=== PATIENT | male | born 1970 | race Caucasian/White ===

== ENCOUNTER 2022-01-13 00:24 | Day surgery (SDC) | payer OTHER, SELFPAY ==
[2022-01-04 14:34] VITALS: BMI 33.0
--- NOTE | 2022-01-12 12:34 | WPDANESEPPF ---
Anes - Initial Pre Proc Eval Procedure: Operation Date: 01/13/22 08:00 Proposed Procedures p Screening Colonoscopy - Sanjay Green MD Date/Time: 01/12/22 12:34 Surgeon: Sanjay Green MD Pre Op Diagnosis: neoplasm screening Patient Data Age: 51 Gender: M Height: 1.68 m Weight: 93 kg Allergies Allergy/AdvReac Type Severity Reaction Status Date / Time No Known Allergies Allergy Unverified 01/13/22 06:55 Home Medications Medication Instructions Recorded Confirmed Type aspirin 81 mg tablet,delayed 81 mg PO DAILY 10/21/21 01/13/22 History release cholecalciferol (vitamin D3) 25 25 mcg PO DAILY 10/21/21 01/13/22 History mcg (1,000 unit) capsule icosapent ethyl 1 gram capsule 2 g PO BID 10/21/21 01/13/22 History (Vascepa) metoprolol succinate 25 mg 1 tablet PO DAILY 10/21/21 01/13/22 History tablet,extended release 24 hr [id number] 120 mcg-lutein 1 tablet PO DAILY 10/21/21 01/13/22 History 150 mcg-herb 50 mg chewable tablet (Alive Men's 50 Plus Multivitamin) ticagrelor 60 mg tablet (Brilinta) 60 mg PO Q12H 10/21/21 01/13/22 History rosuvastatin 40 mg tablet 1 tablet PO DAILY 01/04/22 01/13/22 History sertraline 25 mg tablet 25 mg PO HS 01/04/22 01/13/22 History Patient hx anesthesia problems: none Family hx anesthesia problems: none Results Review: All pre-operative results and documents have been reviewed as part of the pre-operative evaluation. [facility] Past Medical History Medical History (Updated 01/12/22 @ 12:34 by Jose Bedoya DO) BMI 31.0-31.9,adult Heart attack 06/2018 HTN (hypertension) Surgical History Surgical History History of Vamshi fundoplication Family History Family History Mother Hypertension Family history of coronary artery disease Family history of malignant neoplasm of thyroid Family history of diabetes mellitus in first degree relative Grandparent Family history of malignant neoplasm of bone Father Cerebrovascular accident Family history of chronic obstructive pulmonary disease Family history of diabetes mellitus in first degree relative Other Diabetes mellitus Family history of cardiovascular disease Social History Social History Smoking status: Never smoker Alcohol intake: current Drinks per week: 1 Substance use: never Substance use type: does not use Living arrangements: with family Spiritual care concerns: No Anes - Eval Final PreProcedure Day of Procedure 01/12/22 12:34 Patient weight: obese Heart: regular rate and rhythm Lungs: clear to auscultation Airway: Mallampati scale class II Neurological: alert and oriented Last oral intake: >/= 8 hours ASA classification: III Emergent: no Anesthetic plan: proceed Anesthesia type and monitoring: general GIVS and standard monitoring Results Review: All pre-operative results and documents have been reviewed as part of the pre-operative evaluation. Informed Consent: The patient's anesthetic plan and its attendant risks and benefits were discussed with the patient/family/POA. Questions were solicited and answers provided to the satisfaction of the patient/family/POA.
[2022-01-13 06:55] VITALS: BP 122/84; PULSE 61; RESP 18; TEMP 36.2; O2SAT 100; BMI 32.1
[2022-01-13] MEDS: LACTATED RINGERS 1,000 ML 150 ML IV CONT (07:11)
--- NOTE | 2022-01-13 07:48 | PM.HPGS ---
History of Present Illness History of Present Illness Consent: Risks, benefits, and alternatives have been discussed and questions answered. Patient agrees to proceed with procedure. Chief complaint: neoplasm screening Narrative: Sebastian Hsu is a 51 year old male here for screening colonoscopy, last one about 10 years ago Review of Systems Constitutional: Constitutional: Denies headache(s) and Denies weakness Eyes: Eyes: Denies blurry vision ENT: Reports Normal hearing present, Denies headache(s) and Denies neck pain Cardiovascular: Cardiovascular: Denies chest pain and Denies dyspnea Respiratory: Respiratory: Denies dyspnea Gastrointestinal: Gastrointestinal: Reports no additional gastrointestinal complaints Genitourinary: Genitourinary: Denies dysuria Musculoskeletal: Musculoskeletal: Denies neck pain Integumentary/Breasts: Skin/Breast: Denies dry skin Neurologic: Reports Normal hearing present, Denies headache(s) and Denies weakness Psychiatric: Psychiatric: Denies anxiety Endocrine: Endocrine: Denies change in body appearance Hematologic/Lymphatic: Hematologic/Lymphatic: Denies easy bleeding Allergic/Immunologic: Allergic/Immunologic: Denies urticaria PMFSH Past Medical History Medical History (Updated 01/12/22 @ 12:34 by Jose Bedoya DO) BMI 31.0-31.9,adult Heart attack 06/2018 HTN (hypertension) Surgical History Surgical History History of Vamshi fundoplication Family History Family History Mother Hypertension Family history of coronary artery disease Family history of malignant neoplasm of thyroid Family history of diabetes mellitus in first degree relative Grandparent Family history of malignant neoplasm of bone Father Cerebrovascular accident Family history of chronic obstructive pulmonary disease Family history of diabetes mellitus in first degree relative Other Diabetes mellitus Family history of cardiovascular disease Social History Social History Smoking status: Never smoker Alcohol intake: current Drinks per week: 1 Substance use: never Substance use type: does not use Living arrangements: with family Spiritual care concerns: No Meds Home Medications and Allergies Home Medications Medication Instructions Recorded Confirmed Type aspirin 81 mg tablet,delayed 81 mg PO DAILY 10/21/21 01/13/22 History release cholecalciferol (vitamin D3) 25 25 mcg PO DAILY 10/21/21 01/13/22 History mcg (1,000 unit) capsule icosapent ethyl 1 gram capsule 2 g PO BID 10/21/21 01/13/22 History (Vascepa) metoprolol succinate 25 mg 1 tablet PO DAILY 10/21/21 01/13/22 History tablet,extended release 24 hr [id number] 120 mcg-lutein 1 tablet PO DAILY 10/21/21 01/13/22 History 150 mcg-herb 50 mg chewable tablet (Alive Men's 50 Plus Multivitamin) ticagrelor 60 mg tablet (Brilinta) 60 mg PO Q12H 10/21/21 01/13/22 History rosuvastatin 40 mg tablet 1 tablet PO DAILY 01/04/22 01/13/22 History sertraline 25 mg tablet 25 mg PO HS 01/04/22 01/13/22 History Allergies Allergy/AdvReac Type Severity Reaction Status Date / Time No Known Allergies Allergy Unverified 01/13/22 06:55 Vital Signs Vital Signs - 24 hr 01/13/22 06:55 Temperature 97.2 F L Pulse Rate 61 Respiratory Rate 18 Blood Pressure 122/84 Pulse Oximetry 100 Oxygen Delivery Room Air Exam Const: General: comfortable and no acute distress HENMT: General nose exam: Normal nares present Eyes: General: appearance normal, both eyes and all related structures Neck: Neck: no JVD Resp: Auscultation: clear to auscultation bilaterally Cardio: Rate: regular rate Rhythm: regular rhythm GI: Inspection: non-distended GI Palp: Yes Soft to palpation Skin: General skin exam: normal c
[2022-01-13 08:06] VITALS: BP 97/54; PULSE 63; RESP 15; O2SAT 97
[2022-01-13 08:16] VITALS: BP 113/71; PULSE 60; RESP 16; O2SAT 100
[2022-01-13 08:26] VITALS: BP 121/72; PULSE 52; RESP 12; O2SAT 100
== END 2022-01-13 08:45 | disposition home or self-care (01) ==
PROVIDERS: PCP Family Medicine; Visit Provider Internal Medicine Gastroenterology
PROC: 0DJD8ZZ Inspection of Lower Intestinal Tract, Via Natural or Artificial Opening Endoscopic (ICD-10-PCS; CPT 45378; principal; 2022-01-13 08:00)
DX: Z12.11 Encounter for screening for malignant neoplasm of colon (principal); D12.2 Benign neoplasm of ascending colon; K57.30 Diverticulosis of large intestine without perforation or abscess without bleeding; K64.8 Other hemorrhoids; I10 Essential (primary) hypertension; I25.2 Old myocardial infarction; Z79.82 Long term (current) use of aspirin; Z79.01 Long term (current) use of anticoagulants
CPT/HCPCS: 45385; 88305; J2704; J7120

== ENCOUNTER 2023-07-12 08:33 | Outpatient (CLI) | payer OTHER, SELFPAY ==
--- NOTE | ~2023-07-12 | XR_ITS ---
EXAMINATION: XR barium swallow DATE: 07/12/2023 09:16 INDICATION: Hiatal hernia with gastroesophageal reflux disease post surgery 2 years prior TECHNIQUE: The patient drank thick barium, gas-producing crystals, and thin barium. Fluoroscopic spot radiographs of the hypopharynx and esophagus were obtained. Fluoroscopy exposure time was 1.4 minut es. COMPARISON: None. FINDINGS: There is some asymmetry to the pharynx on the views obtained with resisted expiration. The lateral distention of the hypopharynx is located inferiorly on the right and more cephalad on the lef t. The esophagus is normal without mass or stricture. Esophageal motility is normal. There is no hiat al hernia. Contour of the stomach immediately caudal to the gastroesophageal junction consistent with reported history of prior Vamshi fundoplication. There was no gastroesophageal reflux with provocati ve maneuvers. IMPRESSION: 1. Changes consistent with prior Vamshi from the patient with no residual hiatal hernia and no gastro esophageal reflux. 2. Asymmetric lateral distention of the hypopharynx with resistive expiration which is of indetermina te etiology but with smooth mucosal contour. Could consider further evaluation with contrast-enhanced neck CT to assess for extrinsic compressing lesion. Reviewed, dictated and finalized at location [facility] [employer] IMPRESSION: 1. Changes consistent with prior Vamshi from the patient with no residual hiata l hernia and no gastroesophageal reflux. 2. Asymmetric lateral distention of the hypopharynx with resistive expiration w hich is of indeterminate etiology but with smooth mucosal contour. Could consid er further evaluation with contrast-enhanced neck CT to assess for extrinsic co mpressing lesion.
== END 2023-07-12 08:34 | disposition home or self-care (01) ==
PROVIDERS: PCP Family Medicine
DX: K44.9 Diaphragmatic hernia without obstruction or gangrene (principal); K21.9 Gastro-esophageal reflux disease without esophagitis
CPT/HCPCS: 74220

== ENCOUNTER 2024-09-13 18:39 | Emergency (ER) | payer OTHER, SELFPAY ==
[2024-09-13 18:56] VITALS: BP 112/88; PULSE 83; RESP 16; TEMP 36.6; O2SAT 100
--- NOTE | 2024-09-13 19:11 | ED_ITS ---
HPI - Skin/Abscess/Foreign Bdy General Chief complaint: Skin/Abscess/Foreign Body Stated complaint: RASH Time Seen by Provider: 09/13/24 19:10 Source: patient, RN notes reviewed and old records reviewed Mode of arrival: ambulatory Limitations: no limitations History of Present Illness HPI narrative: 54 year old male with complaints of having red raised blister rash on the inner aspect of upper left thigh and also to the anterior lateral area of left thigh since . Patient describes the rash are as being itchy and burning. Patient has been using Lotrimin cream to area at first thinking it was jock itch but no improvement of symptoms. Here today because he is concerned for rash being shingles complaint: rash Onset (ago): day(s) (3) Location: LLE (thigh area) Severity: moderate Severity scale (1-10): 4 Quality: burning Pain Consistency: constant Treatments prior to arrival: other (Lotrimin ointment) Related Data Home Medications ?Medication ?Instructions ?Recorded ?Confirmed ?Last Taken ?Type aspirin 81 mg tablet,delayed 81 mg PO DAILY 10/21/21 09/13/24 Unknown History release cholecalciferol (vitamin D3) 25 25 mcg PO DAILY 10/21/21 09/13/24 Unknown History mcg (1,000 unit) capsule icosapent ethyl 1 gram capsule 2 g PO BID 10/21/21 09/13/24 Unknown History (Vascepa) metoprolol succinate 25 mg 1 tablet PO DAILY 10/21/21 09/13/24 Unknown History tablet,extended release 24 hr [id number] 120 mcg-lutein 1 tablet PO DAILY 10/21/21 09/13/24 Unknown History 150 mcg-herb 50 mg chewable tablet (Alive Men's 50 Plus Multivitamin) rosuvastatin 40 mg tablet 1 tablet PO DAILY 01/04/22 09/13/24 Unknown History Allergies Allergy/AdvReac Type Severity Reaction Status Date / Time No Known Allergies Allergy Verified 09/13/24 19:22 Review of Systems Review of Systems: CONSTITUTIONAL: Denies fever, chills, or sweats. CARDIOVASCULAR: Denies chest pain, palpitations, or edema. RESPIRATORY: Denies cough or dyspnea. SKIN: Reports red raised blistery rash to left inner thigh and to lateral dorsal area of left thigh with burning pain and itching too rash area MUSCULOSKELETAL: Denies joint pain or myalgia. NEUROLOGIC: Denies headache, numbness, or weakness. All systems reviewed & are unremarkable except as noted in HPI and below PMFSH Past Medical History Medical History Heart attack 06/2018 HTN (hypertension) BMI 31.0-31.9,adult Surgical History Surgical History History of Vamshi fundoplication Family History Family History Mother Hypertension Family history of coronary artery disease Family history of malignant neoplasm of thyroid Family history of diabetes mellitus in first degree relative Grandparent Family history of malignant neoplasm of bone Father Cerebrovascular accident Family history of chronic obstructive pulmonary disease Family history of diabetes mellitus in first degree relative Other Diabetes mellitus Family history of cardiovascular disease Social History Social History Smoking status: Never smoker Alcohol intake: current Drinks per week: 1 Substance use: never Substance use type: does not use Living arrangements: with family Spiritual care concerns: No Comments At time of signature, agree with nursing past medical, surgical, social and family history. There is no relevant family history pertinent to the presenting complaint Exam Narrative: GENERAL: Well-appearing, well-nourished, and in no acute distress. HEAD: Normocephalic, atraumatic. EYES: PERRLA, conjunctivae clear, and EOMI. ENT: Mucous membranes moist. Oropharynx without edema, erythema or lesions. NECK: Supple. No lymphadenopathy CHEST: Clear to auscultation. No respiratory distress. SAO2 100% on room air HEART: Regular rate and rhythm. SKIN: Warm, dry.? raised red pustules on inner aspect of left inner thigh and also on dorsal lateral thigh area which are itching and burning NEURO:? Alert and oriented x3. PSYCH: Normal mood and affect Course Course Emergency Course: Patient is aware of diagnosis, understands and agrees to treatment plan.? Anticipatory guidance given.? Patient agrees to follow-up as directed and is aware of reasons to seek care at the emergency department. Portions of this record may have been created with voice recognition software Level of Care: Express Care Visit Vital Signs Vital signs: Vital Signs Temperature 36.6 C 09/13/24 18:56 Pulse Rate 83 09/13/24 18:56 Respiratory Rate 16 09/13/24 18:56 Blood Pressure 112/88 09/13/24 18:56 Pulse Oximetry 100 09/13/24 18:56 Temperature 36.6 C 09/13/24 18:56 Pulse Rate 83 09/13/24 18:56 Respiratory Rate 16 09/13/24 18:56 Blood Pressure 112/88 09/13/24 18:56 Pulse Oximetry 100 09/13/24 18:56 Reviewed MDM - Skin/Abscess/Foreign Bdy MDM Narrative Medical decision making narrative: Does not appear at this time to be erythema multiforme, bullous, SJS, TEN; no evidence at this time to suggest RMSF, endocarditis or Lyme disease; patient looks well, nontoxic and is tolerating oral intake; no neurologic signs or symptoms; no headache, photophobia or neck pain; afebrile; appropriate for initial outpatient treatment; discussed the importance of follow-up, patient agrees; question, viral exanthema, contact dermatitis, allergic dermatitis, eczema, urticaria. No soft palate or uvula edema, no tongue, lip edema or other mucosal involvement, no respiratory compromise, no stridor, no wheezing, no wheezing, no history of syncope, no hypotension, no nausea, vomiting, or diarrhea.? Instructed patient to go to nearest ER immediately for any worsening symptoms including but not limited to: fever, spreading rash, pain, sore throat, headache, dizziness, chest pain, trouble breathing, or any symptoms concerning to the patient. Differential Diagnosis Differential diagnosis: Likely abscess of skin or subcutaneous tissue, urticaria, cellulitis, eczema and other (shingles rash) Medical Records Attestation: I reviewed the patient's medical records. Critical Care Time Critical Care Time Critical Care Time: No Discharge Plan Discharge Clinical Impression: Shingles rash Qualifiers: Herpes zoster complications: without complications Qualified Code(s): B02.9 - Zoster without complications Patient Disposition: Home, Self-Care Condition: Stable Instructions: Gabapentin (By mouth), Shingles (ED) Additional Instructions: Valtrex 1000 mg p.o. 3 times daily for 21 days watch for any increasing infection--redness, swelling, drainage Tylenol or ibuprofen for any fever pain follow up with PCP in 7-10 days for a wound check recheck if develop fever, chills, increasing symptom Go to the ER if your symptoms become worse of if ANY new symptoms develop gabapentin for nerve pain 1 twice daily Tylenol or ibuprofen for pain May apply sziu-ezh-vzhredn lidocaine ointment to rash If your symptoms persist, change or worsen significantly before you can contact your personal physician then please, without delay, go to the emergency department for further evaluation. Follow-up with PCP in 7-10 days or sooner if needed Patient Language: Martiniquais Prescriptions: New gabapentin 300 mg capsule 300 mg PO BID Qty: 20 0RF valacyclovir [Valtrex] 1 gram tablet 1,000 mg PO Q8H Qty: 21 0RF No Action metoprolol succinate 25 mg tablet extended release 24 hr 1 tablet PO DAILY aspirin 81 mg tablet,delayed release (DR/EC) 81 mg PO DAILY icosapent ethyl [Vascepa] 1 gram capsule 2 g PO BID Alive Men's 50 Plus Multivit 120 mcg-150 mcg -50 mg tablet,chewable 1 tablet PO DAILY cholecalciferol (vitamin D3) 25 mcg (1,000 unit) capsule 25 mcg PO DAILY rosuvastatin 40 mg tablet 1 tablet PO DAILY Follow-up/Referrals: Ethan Donato MD [Primary Care Provider] - Time of Disposition: 19:27 Quality Antony Coma Scale Eyes: Open Verbal: Oriented and Alert Motor: Follows Commands [place] Coma Total Score: 15
== END 2024-09-13 19:33 | disposition home or self-care (01) ==
PROVIDERS: Emergency Provider Registered Nurse; PCP Family Medicine
DX: B02.9 Zoster without complications (principal); I10 Essential (primary) hypertension; I25.2 Old myocardial infarction; Z79.82 Long term (current) use of aspirin
CPT/HCPCS: 99213; G0463